=== PATIENT | female | born 1985 | race Caucasian/White ===

== ENCOUNTER 2017-01-04 21:58 | Outpatient (CLI) | payer OTHER ==
--- NOTE | 2017-01-04 22:59 | DIAGNOSTIC IMAGING REPORT ---
PROCEDURE: XR HIP 2VW W W/O AP PELVIS-RT INDICATION: ARTHRITIS TECHNIQUE: AP view of the pelvis and hips with lateral view of the right hip. COMPARISON: None. FINDINGS: RIGHT HIP: Normal mineralization. No fracture. Normal bony alignment. No significant degenerative change at the hip joint. No unusual adjacent calcifications. PELVIS: Normal mineralization. Pelvic rings are intact. No fractures. Normal alignment. No significant degenerative change at the left hip joint. The visible bowel gas pattern and pelvic soft tissues appear normal. IMPRESSION: 1. Intact right hip and normal pelvis.
== END 2017-01-04 23:00 ==
LOC: XR SRH 21:58
DX: M16.11 Unilateral primary osteoarthritis, right hip (principal)